=== PATIENT | female | born 1985 | race Hispanic/Latino ===

== ENCOUNTER → 2024-11-24 | Outpatient (CLI) | payer OTHER, MEDICARE ==
--- NOTE | 2024-11-28 11:44 | HMCSR ---
APPROVED REPORT EXAM: Two-dimensional and M-mode echocardiogram with Doppler and color Doppler. INDICATION ICD: R01.1 Cardiac murmur, unspecified 2D Dimensions RVDd5.0 cmLVEF(%)62.2 (>50%) IVSd0.8 (0.7-1.1cm)FS(%)33 % LVDd3.8 (3.8-5.6cm) PWd0.9 (0.7-1.1cm) LVDs2.6 (2.5-4.0cm) Aortic Valve AoV Vmax1.3 m/Makeda Peak GR6.3 mmHgLVOT Vmax0.9 m/s AoV VTI0.2 mAo Mean GR3.6 mmHgLVOT VTI0.16 m Mitral Valve MV E Mefn585.5 cm/sDECEL Fksd490 ms MV A Vmax75.0 cm/sP 1/2 T50 ms E/A ratio1.5MVA (PHT)4.4 cm2 TDI E/E' Skoknb43.2E/E' Soxkqez66.1 Pulmonary Valve PV Vmax2.8 m/sPV VTI0.48 mPV Mean GR15 mmHg PV Peak GR32.0 mmHg Tricuspid Valve TR Vmax2.4 m/sRAP (EST) 8 eyFtUHGZ00.9 mmHg TR Peak GR23.9 mmHg Left Ventricle The left ventricle structure and function is normal. Septal bounce is present. There is normal left v entricular wall thickness. LVEF is 55-60%. The left ventricular diastolic function is normal. Right Ventricle The right ventricle is moderately dilated. Right ventricular systolic function is mildly reduced. Atria The left atrium size is normal. The right atrium appears dilated. Aortic Valve The aortic valve opens well. No aortic regurgitation is present. There is no aortic valvular stenosis . Mitral Valve Mitral valve leaflets appear normal. There is no mitral valve regurgitation noted. There is no mitral valve stenosis. Tricuspid Valve The tricuspid valve leaflets appear normal. There is mild tricuspid regurgitation. Right ventricular systolic pressure is estimated at 30-40 mmHg. Pulmonic Valve Pulmonic valve is not well visualized. 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 Max Pulmonic valve gr adient is 32 mmHg. Mean Pulmonic valve gradient is 15mmhg. Great Vessels The aortic root is not well visualized but is probably normal size. IVC is not well visualized. Pericardium No pericardial effusion. Other Information Quality : Technically LimitedRhythm : NSR Technically limited study due to body habitus. Conclusion LVEF is 55-60%. Septal bounce is present. Mild pulmonic stenosis. Vpk 2.8 m/s, peak gradient 32 mmHg. Right ventricular systolic pressure is estimated at 30-40 mmHg. The right ventricle is moderately dilated. There is mild tricuspid regurgitation.
== END | disposition home or self-care (01) ==
LOC: SHCH 12:50
PROVIDERS: ATTEND Internal Medicine
DX: I08.8 Other rheumatic multiple valve diseases (principal); R01.1 Cardiac murmur, unspecified; Q25.6 Stenosis of pulmonary artery
CPT/HCPCS: 93306